=== PATIENT | female | born 1975 | race African-American/Black ===

== ENCOUNTER 2019-10-09 15:57 | Emergency (ER) | payer MEDICAID ==
[~2019-10-09] VITALS: Ht 165.1 cm; Wt 75.0 kg
[2019-10-09] MEDS ORDERED: MORPHINE SULFATE 4 MG/ML CPJ (NOT FOR IM USE) IV STA (18:12)
[2019-10-09] MEDS ORDERED: ONDANSETRON HCL 4MG/2ML INJ IV STA (18:12)
[2019-10-09] MEDS ORDERED: SODIUM CHLORIDE 0.9% 1,000 ML IV ONE (18:12)
[2019-10-09 19:10] LABS: BASOPHILS % 1.4 % (0.0-2.0); EOSINOPHILS % 0.1 % (0.0-5.0); HEMATOCRIT. 32.5 % (36.0-48.0); HEMOGLOBIN. 10.2 g/dL (12.0-16.0); MEAN CORPUSCULAR HEMOGLOBIN 22.4 pg (28.0-32.0); MEAN CORPUSCULAR VOLUME 71.6 fL (81.0-99.0); MEAN PLATELET VOLUME 8.1 fl (7.4-10.4); NEUTROPHILS % 69.5 % (40.0-76.0); PLATELET 247 x1000/uL (130-400); RED BLOOD CELL COUNT 4.54 mill/uL (4.2-5.4); RED CELL DISTRIBUTION WIDTH 17.9 % (11.6-14.6)
[2019-10-09 19:13] LABS: CLARITY URINE CLEAR (CLEAR); COLOR URINE YELLOW (YELLOW); KETONES URINE 3+ (NEGATIVE); LEUKOCYTE ESTERASE URINE NEGATIVE (NEGATIVE); NITRITE URINE NEGATIVE (NEGATIVE); OCCULT BLOOD URINE NEGATIVE (NEGATIVE); PH URINE 7.5 (4.5-8.0); PROTEIN URINE TRACE (NEGATIVE); SPECIFIC GRAVITY URINE 1.024 (1.005-1.030); UROBILINOGEN URINE 0.2 E.U./dL (0.2-1.0)
[2019-10-09 19:17] LABS: CHLORIDE 105 mEq/L (98-107)
[2019-10-09 19:32] LABS: HCG SCREEN NEGATIVE
[2019-10-09] MEDS ORDERED: IOHEXOL-300 100 ML BOTTLE ONE (22:16)
[2019-10-09 23:15] VITALS: BP 112/67
== END 2019-10-09 23:30 | disposition home or self-care (01) ==
LOC: ER 15:57
DX: N83.209 Unspecified ovarian cyst, unspecified side (principal); D25.9 Leiomyoma of uterus, unspecified; R94.5 Abnormal results of liver function studies; Z88.5 Allergy status to narcotic agent
CPT/HCPCS: 36415; 74177; 76830; 76856; 80053; 81003; 81025; 83690; 84703; 85025; 96361; 96374; 96375; 99284; J2270; J2405; J7030; Q9967; Z7610

== ENCOUNTER 2019-12-05 13:45 | Emergency (ER) | payer MEDICAID ==
[~2019-12-05] VITALS: Ht 165.1 cm; Wt 77.0 kg
[2019-12-05] MEDS ORDERED: ONDANSETRON HCL 4MG/2ML INJ IV STA (16:29)
[2019-12-05] MEDS ORDERED: SODIUM CHLORIDE 0.9% 1,000 ML IV ONE (16:29)
[2019-12-05] MEDS ORDERED: VISCOUS LIDOCAINE 2% 15 ML UDC PO ONE (16:30)
[2019-12-05] MEDS ORDERED: MAGNESIUM/ALUMINUM HYDROXIDE/SIMETHICONE 30ML UDC PO ONE (16:30)
[2019-12-05] MEDS ORDERED: MORPHINE SULFATE 2 MG/ML CPJ (NOT FOR IM USE) IV ONE (16:45)
[2019-12-05 17:32] LABS: HEMATOCRIT. 31.2 % (36.0-48.0); HEMOGLOBIN. 9.4 g/dL (12.0-16.0); MEAN CORPUSCULAR HEMOGLOBIN 21.3 pg (28.0-32.0); MEAN CORPUSCULAR VOLUME 70.5 fL (81.0-99.0); MEAN PLATELET VOLUME 9.1 fl (7.4-10.4); PLATELET 233 x1000/uL (130-400); RED BLOOD CELL COUNT 4.43 mill/uL (4.2-5.4); RED CELL DISTRIBUTION WIDTH 19.8 % (11.6-14.6)
[2019-12-05 17:33] LABS: CHLORIDE 107 mEq/L (98-107)
[2019-12-05 19:35] VITALS: BP 100/71
[2019-12-05] MEDS ORDERED: KETOROLAC 30MG/ML VIAL IV ONE (20:30)
[2019-12-05 21:01] LABS: ATYPICAL LYMPHOCYTES 1; PLATELET ESTIMATE NORMAL
== END 2019-12-05 21:46 | disposition home or self-care (01) ==
LOC: ER 14:49
DX: D25.9 Leiomyoma of uterus, unspecified (principal); R10.30 Lower abdominal pain, unspecified; R11.2 Nausea with vomiting, unspecified; R53.1 Weakness; Z88.5 Allergy status to narcotic agent
CPT/HCPCS: 36415; 71045; 74018; 76856; 80053; 81025; 83690; 83880; 84484; 85025; 93005; 96361; 96374; 96375; 99284; J1885; J2270; J2405; J7030

== ENCOUNTER 2019-12-29 15:18 | Emergency (ER) | payer MEDICAID ==
[~2019-12-29] VITALS: Ht 165.1 cm; Wt 69.0 kg
[2019-12-29] MEDS ORDERED: ACETAMINOPHEN 325MG TABLET PO STA (16:42)
[2019-12-29 17:16] LABS: BASOPHILS % 1.2 % (0.0-2.0); EOSINOPHILS % 0.6 % (0.0-5.0); HEMATOCRIT. 39.4 % (36.0-48.0); HEMOGLOBIN. 12.1 g/dL (12.0-16.0); LYMPHOCYTES % 24.9 % (20.0-50.0); MEAN CORPUSCULAR HEMOGLOBIN 21.4 pg (28.0-32.0); MEAN CORPUSCULAR VOLUME 69.5 fL (81.0-99.0); MEAN PLATELET VOLUME 8.3 fl (7.4-10.4); MONOCYTES % 8.2 % (2.0-8.0); NEUTROPHILS % 65.1 % (40.0-76.0); PLATELET 470 x1000/uL (130-400); RED BLOOD CELL COUNT 5.67 mill/uL (4.2-5.4); RED CELL DISTRIBUTION WIDTH 20.1 % (11.6-14.6)
[2019-12-29 17:17] LABS: CHLORIDE 102 mEq/L (98-107)
[2019-12-29 17:25] LABS: CLARITY URINE TURBID (CLEAR); COLOR URINE ORANGE (YELLOW); KETONES URINE 4+ (NEGATIVE); LEUKOCYTE ESTERASE URINE TRACE (NEGATIVE); NITRITE URINE NEGATIVE (NEGATIVE); OCCULT BLOOD URINE 3+ (NEGATIVE); PH URINE 5.5 (4.5-8.0); PROTEIN URINE 2+ (NEGATIVE); SPECIFIC GRAVITY URINE 1.035 (1.005-1.030)
[2019-12-29 17:36] LABS: PLATELET ESTIMATE INCREASED
[2019-12-29 18:16] LABS: HCG SCREEN NEGATIVE
[2019-12-30] MEDS ORDERED: SODIUM CHLORIDE 0.9% 1,000 ML IV ONE (00:59)
[2019-12-30] MEDS ORDERED: ONDANSETRON HCL 4MG/2ML INJ IV STA (00:59)
[2019-12-30] MEDS ORDERED: CEFTRIAXONE 1 G PREMIX 50 ML IV ONE (01:00)
[2019-12-30] MEDS ORDERED: KETOROLAC 15MG/ML VIAL IV ONE (01:00)
[2019-12-30 03:00] VITALS: BP 110/74
== END 2019-12-30 04:38 | disposition home or self-care (01) ==
LOC: ER 15:18
DX: N39.0 Urinary tract infection, site not specified (principal); D25.9 Leiomyoma of uterus, unspecified; Z88.5 Allergy status to narcotic agent
CPT/HCPCS: 36415; 76700; 76856; 80053; 81003; 81025; 83690; 84703; 85025; 96365; 96375; 99285; J0696; J1885; J2405; J7030